=== PATIENT | male | born 1950 ===

== ENCOUNTER 2018-04-26 15:08 | Emergency (ER) | payer MEDICARE | END 2018-04-26 15:45 | disposition home or self-care (01) | LOC: NAV ERS 15:08 | DX: T82.590A Other mechanical complication of surgically created arteriovenous fistula, initial encounter (principal); T82.838A Hemorrhage due to vascular prosthetic devices, implants and grafts, initial encounter; E78.00 Pure hypercholesterolemia, unspecified; N18.6 End stage renal disease; I12.0 Hypertensive chronic kidney disease with stage 5 chronic kidney disease or end stage renal disease; Z79.899 Other long term (current) drug therapy | CPT/HCPCS: 99283 ==